=== PATIENT | female | born 1945 | race Caucasian/White ===

== ENCOUNTER 2016-08-25 18:43 | Emergency (ER) | payer MEDICARE, BC ==
--- OUTSIDE RECORDS SUMMARY | 2016-08-25 19:47 | XMS REPORT | Continuity of Care Document ---
:1945 Author Organization [facility] ([facility]) Address [address] [place] [address] Phone [phone] Care Team Providers Name Role Phone RafiaKrystian cotahussein Primary Care Provider [phone] Source Comments This disclosure is being made pursuant to the Care Everywhere program, applicable federal and state laws, and may not contain all informaitonavailable regarding this patient.[facility] ([facility]) Active Allergies and Adverse Reactions Allergen Noted Date Severity Reactions Comments Penicillins Angioedema,Anaphylaxis Current Medications Prescription Sig. Disp. Refills Start Date End Date Status atorvastatin (LIPITOR) 10 take 10 mg by Active mg tablet mouth daily. glyburide-metformin take 2 Tabs by Active (GLUCOVANCE) 5-500 mg per mouth 2 times tablet daily. DOCOSAHEXANOIC ACID/EPA Take by mouth Active (FISH OIL PO) daily. UBIDECARENONE (CO Q-10 PO) Take by mouth Active daily. aspirin 81 mg tablet Take 81 mg by Active mouth daily. MILK THISTLE PO Take by mouth 2 Active times daily. CHOLECALCIFEROL, VITAMIN Take by mouth Active D3, (VITAMIN D-3 PO) daily. estradiol (ESTRACE) 0.01 % insert vaginally Active (0.1 mg/g) vaginal cream daily. Progesterone Micronized 4 % insert vaginally Active Gel daily. IRON AMINO ACID Take by mouth Active [id number] PO daily. prasterone, dhea,-calcium Take by mouth. Active carb (DHEA) 10 mg-47 mg calcium Tab AMLODIPINE-BENAZEPRIL 5-40 Take 1 capsule by 2 01/09/2015 Active mg per capsule mouth daily LATANOPROST 0.005 % Instill 1 Drop 5 01/03/2015 Active ophthalmic solution onto both eyes daily niacin 500 mg tablet Take 500 mg by Active mouth 2 times daily metFORMIN 500 mg XR tablet Take 1,000 mg by 02/13/2016 Active mouth 2 times daily. benazepril 20 mg tablet Take 30 mg by 1 02/14/2016 Active mouth daily. hydroCHLOROthiazide 12.5 mg Take 12.5 mg by 1 12/05/2015 Active tablet mouth daily. glimepiride 1 mg tablet Take 1 mg by 1 02/14/2016 Active mouth 2 times daily. ISTALOL 0.5 % drpd Instill 1 Drop 5 12/06/2015 Active ophthlamic solution onto the right eye. Active Problems Problem Noted Date Encounter for screening mammogram for malignant neoplasm of breast 02/18/2016 Personal history of benign breast biopsy 02/12/2015 Abnormal mammogram, unspecified 12/16/2007 Social History Tobacco Use Types Packs/Day Years Used Date Former Smoker Tobacco Cessation:Counseling Given: Yes Comments: Last Filed Vital Signs Vital Sign Reading Time Taken Blood Pressure 156/84 02/18/2016 2:15 PM [employer]ING[employer]EARCH INTERVIEWER Pulse 108 02/18/2016 2:15 PM [employer]EARCH INTERVIEWER Temperature 36.9 C (98.4 F) 02/12/2015 1:52 PM [employer]ING[employer] RESEARCH INTERVIEWER Respiratory Rate 16 09/01/2013 10:16 AM CDT Height 1.651 m (5' 5") 02/18/2016 2:15 PM [employer]ING[employer] RESEARCH INTERVIEWER Weight 71.4 kg (157 lb 6.5 oz) 02/18/2016 2:15 PM [employer]INGUAL RESEARCH INTERVIEWER Body Mass Index 26.19 02/18/2016 2:15 PM [employer]ING[employer] RESEARCH INTERVIEWER Oxygen Saturation 95% 08/07/2011 11:51 AM CDT Plan of Care Date Type Specialty Providers Description 02/18/2017 Appointment Radiology Default, Other Billg - Chief Comp: Patient Defo Reported Reason For [address] [place] [address] [phone] (Fax) 02/18/2017 Appointment [facility] Missy Arteaga ARNP Chief Comp: Patient [address] [place] [address] Visit [phone] (Fax) Health Maintenance Due Date Last Done Comments HCV Screening 1945 Hepatitis B Vaccine (1 of 3 1945 - Primary Series) Tdap Vaccine 11/24/1958 Lipid Disorder Screening 11/24/1965 Td Vaccine 11/24/1965 Colonoscopy 11/24/1997 Zoster Vaccine 2007 Osteoporosis Screening (DXA 11/24/2012 Bone Density) Pneumococcal Vaccine (1 of 2 11/24/2012 - PCV13) Influenza Vaccine: Seasonal 11/04/2015 (#1) Mammogram 02/17/2017 02/18/2016, Additional history exists 02/12/2015, 09/01/2013 Results from Last 3 Months Not on file
--- NOTE | 2016-08-25 19:58 | ERNOTE ---
Medical Problem HPI - Narrative Date of Service: 08/25/16 - General Chief Complaint: General Assessment Time Seen by Provider: 08/25/16 19:32 Source: patient Exam Limitations: no limitations - Immun/Allergies/Home Medications Immunizations: IMMUNIZATION HX Immunizations Up to Date Yes History of Influenza Vaccine Yes Allergies/Adverse Reactions: Allergies Penicillins Allergy (Verified 08/25/16 18:57) Home Medications: HOME MEDICATIONS Atorvastatin Calcium [Lipitor] 10 mg PO DAILY 08/25/16 [Last Taken Unknown] Cephalexin Monohydrate [Keflex] 500 mg PO QID #40 cap 08/25/16 [Last Taken Unknown] Cetirizine HCl 10 mg PO DAILY PRN 08/25/16 [Last Taken Unknown] Cholecalciferol (Vitamin D3) [Vitamin D3] 5,000 unit PO DAILY 08/25/16 [Last Taken Unknown] Diltiazem HCl [Diltiazem ER] 360 mg PO DAILY 08/25/16 [Last Taken Unknown] Ferrous Sulfate [Iron] 325 mg PO DAILY 08/25/16 [Last Taken Unknown] Fluticasone Propionate [Flonase] 1 spray NS DAILY 08/25/16 [Last Taken Unknown] Glimepiride 4 mg PO BID 08/25/16 [Last Taken Unknown] Hydrochlorothiazide 12.5 mg PO DAILY 08/25/16 [Last Taken Unknown] Timolol Maleate/Pf [Timoptic 0.25% Ocudose Drop] 1 each OP BID 08/25/16 [Last Taken Unknown] Ubidecarenone [Co Q-10] 100 mg PO DAILY 08/25/16 [Last Taken Unknown] Valsartan 160 mg PO DAILY 08/25/16 [Last Taken Unknown] metFORMIN HCL [Glucophage] 500 mg PO BID 08/25/16 [Last Taken Unknown] - History of Present History Narrative: Pt. comes in with c/o high blood pressure today of 200/100at home then confirmed at [facility] and then again here in triage. Pt.. has a hx of HTN and when she saws it was so high she took her nightime cardizem and it is lower at this time. Pt. denies any CP, NVD, recent illness, vision changes, or dizziness. Pt. does state that she has a tolerable headache at this time. Review of Systems - Review of Systems Constitutional: Present: no symptoms reported. Absent: recent illness, fever, chills, weakness, fatigue, malaise EYE: Present: no symptoms reported ENT: Present: no symptoms reported Respiratory: Present: no symptoms reported. Absent: shortness of breath, cough , wheezing Cardiology: Present: no symptoms reported. Absent: chest pain, palpitations, edema Gastrointestinal/Abdominal: Present: no symptoms reported. Absent: nausea, vomiting, diarrhea, abdominal pain Genitourinary: Present: no symptoms reported Musculoskeletal: Present: no symptoms reported. Absent: back pain, joint pain Skin: Present: no symptoms reported Neurological: Present: headache. Absent: dizziness/light-headedness, numbness, tingling Hematologic/Lymphatic: Present: no symptoms reported. Absent: easy bruising, easy bleeding All Other Systems: All systems neg except as marked - Patient's Past Medical History Patient History - Medical: No pertinent hx Patient History - Cardiac/Respiratory: Hypertension Patient History - Cancer: No Hx of Cancer Patient History - Surgical Procedures: No surgical history Patient History - Other: None - Social History Living Situations: spouse Abuse History: No History of abuse Psych History: No pertinent hx Smoking Status: Former smoker Have you smoked in the past 12 months: No Do you dip or chew tobacco: No Alcohol Use: none Drug Use: none - Immunizations Immunizations Up to Date: Yes History of Influenza Vaccine: Yes Physical Exam - Physical Exam General Appearance: Present: wd/wn, alert, no apparent distress Eye Exam: Normal inspection: bilateral, PERRL: bilateral, EOMI: bilateral Ears, Nose, Throat: Present: normal ENT inspection, normal pharynx Neck: Present: normal inspection, nontender. Absent: lymphadenopathy (R), lymphadenopathy (L) Respiratory: Present: no respiratory distress, normal breath sounds, no accessory muscle use, chest nontender, lungs clear Cardiovascular/Chest: Present: regular rate, rhythm, no murmur, normal peripheral pulses Gastrointestinal/Abdominal: Present: normal bowel sounds, nontender, nondistended, soft, no organomegaly Back Exam: Present: normal inspection, normal range of motion, no CVA tenderness Extremity Exam: Present: normal inspection, non-tender, normal range of motion, no edema Neurological Exam: Present: alert, oriented, normal mood/affect, no motor/ sensory deficits, occupational therapy supervisor II-XII nml as tested, normal cerebellar test Skin Exam: Present: normal color, warm/dry. Absent: pallor, skin rash ED Progress - Date and Time Seen: Date and Time: 08/25/16 21:08 Blood pressure resumed to normal about an hour after taking cardizem so feel that pt. should take this in the AM instead of at night. - Results and Orders Patient's Lab Results:: I have reviewed the patient's lab results. - Vital Signs Patient's Vital Signs:: I have reviewed the patient's vital signs. Vital Signs: Vital Signs 08/25/16 08/25/16 08/25/16 18:49 18:52 19:03 Temperature 36.4 C L Pulse Rate 98 111 H Respiratory 16 16 Rate Blood Pressure 201/93 201/93 178/95 O2 Sat by Pulse 99 97 Oximetry - EKG EKG: NSR EKG read: Reviewed by me EKG Comments: no acute interp by dr kwon - X-Ray X-Ray #1 X-Ray: chest Interpretation: Interp. by me X-ray Comments: mild cardiomegaly no pulmonary edema, no consolidation, no infiltrate. - Progress/Reassessment Chief Complaint: General Assessment Progress:: Improved Departure - Departure Clinical Impression: Hypertension Qualifiers: Hypertension type: essential hypertension Qualified Code(s): I10 - Essential ( primary) hypertension UTI (urinary tract infection) Qualifiers: Urinary tract infection type: acute cystitis Hematuria presence: without hematuria Qualified Code(s): N30.00 - Acute cystitis without hematuria Disposition: Home self-care Condition: Good Instructions: Urinary Tract Infection, Adult, [id number], Managing Your High Blood Pressure Additional Instructions: Please follow up with your primary provider next week as planned. Start taking Cardizem in the morning and recheck blood pressure after an hour. Referrals: Joe Ambrocio MD [Primary Care Provider] - Prescriptions: Cephalexin Monohydrate [Keflex] 500 mg PO QID #40 cap
[2016-08-25 20:14] LABS: Hematocrit 45.3 % (37.0-47.0); Mean Cell Volume 82.2 fl (78-100); Mean Corpuscular Hemoglobin 27.2 pg (27-31); Mean Corpuscular Hgb Conc 33.1 g/dl (32-36); Mean Platelet Volume 9.6 fl (6.0-9.5); Neutrophil # 6.3 K/mm3 (1.3-6.0); Neutrophil % 66.6 % (42-75.0); Platelet Count 398 K/mm3 (150-450); Red Blood Count 5.51 M/mm3 (4.2-5.4); Red Cell Distribution Width 13.8 % (11.5-14.0); White Blood Count 9.4 K/mm3 (4.0-10.5)
[2016-08-25 20:17] LABS: Urine Bilirubin Negative (NEGATIVE); Urine Blood Negative /ul (NEGATIVE); Urine Ketone Negative (NEGATIVE); Urine Nitrite Negative (NEGATIVE); Urine Protein Negative (NEGATIVE); Urine Specific Gravity <=1.005 SP.GR. (1.005-1.010); Urine Urobilinogen Normal (NORMAL)
[2016-08-25 20:26] LABS: Urine Appearance Clear; Urine Bacteria 2+; Urine Color Yellow; Urine RBC None Seen /hpf (0-5); Urine WBC 0-5 /hpf (0-5)
[2016-08-25 20:32] LABS: ALT 36 U/L (19-67); AST 22 U/L (0-48); Albumin * 4.5 gm/dl (3.4-5.0); Alkaline Phosphatase * 59 U/L (50-170); Anion Gap 11.9 mmol/L (6.8-13.8); BUN/Creatinine Ratio 19.4 (9.0-21.6); Bilirubin, Total 0.7 mg/dL (0.0-1.1); Blood Urea Nitrogen 14 mg/dL (3-23); Calcium * 9.7 mg/dL (7.9-10.9); Chloride 100 mmol/L (97-106); Glucose * 145 mg/dL (70-110); Potassium 3.9 mmol/L (3.4-4.6); Sodium 140 mmol/L (132-142); Total Protein 8.4 gm/dL (6.2-8.2); Troponin I Less than 0.017 ng/ml (0.00-0.10)
[2016-08-25 21:19] VITALS: BP 125/66
== END 2016-08-25 21:18 | disposition home or self-care (01) ==
LOC: ER 18:43
DX: I10 Essential (primary) hypertension (principal); N30.00 Acute cystitis without hematuria; Z87.891 Personal history of nicotine dependence